=== PATIENT | male | born 1970 ===

== ENCOUNTER → 2024-09-05 15:04 | Outpatient (ROUT) | payer OTHER, SELFPAY ==
[2024-09-05 15:46] LABS: Free T3, Triiodothyronine Free 3.84 pg/mL (2.77-5.27); Free T4, Direct Thyroxine 1.15 ng/dL (0.78-2.19)
[2024-09-05 16:00] LABS: Thyroid Stimulating Hormone 5.69 uIU/mL (0.47-4.68)
== END ==
PROVIDERS: Visit Provider Family Medicine
DX: E03.9 Hypothyroidism, unspecified (principal)
CPT/HCPCS: 84439; 84443; 84481